=== PATIENT | female | born 1995 | race African-American/Black ===

== ENCOUNTER 2018-01-11 11:48 | Emergency (ER) | payer MEDICAID ==
[~2018-01-11] VITALS: Ht 165.1 cm; Wt 78.0 kg
[2018-01-11 12:11] VITALS: Ht 165.1 cm; Wt 78.0 kg
[2018-01-11 14:39] VITALS: BP 121/65
== END 2018-01-11 14:39 | disposition home or self-care (01) ==
LOC: ED 11:48
DX: J40 Bronchitis, not specified as acute or chronic (principal)